=== PATIENT | female | born 1980 | race African-American/Black ===

== ENCOUNTER 2021-06-20 19:44 | Emergency (ER) | payer OTHER ==
[~2021-06-20] VITALS: Ht 170.2 cm; Wt 90.3 kg
[2021-06-20 20:06] VITALS: BP 137/85
[2021-06-20] MEDS ORDERED: LIDOCAINE-MPF 1%, 5ML ONE (21:30)
[2021-06-20] MEDS ORDERED: BACITRACIN ZINC OINT 500U/GM, 0.9 GM ONE ×2 (21:37→22:36)
[2021-06-20] MEDS ORDERED: SULFAMETH./TRIMETHOPRIM DS 800MG/160MG TABLET PO ONE (22:30)
[2021-06-20] MEDS ORDERED: IBUPROFEN 600 MG TABLET PO ONE (22:30)
[2021-06-20] MEDS ORDERED: IBUPROFEN 600 MG TABLET ONE (22:35)
[2021-06-20] MEDS ORDERED: SULFAMETH./TRIMETHOPRIM DS 800MG/160MG TABLET ONE (22:35)
== END 2021-06-20 23:05 | disposition home or self-care (01) ==
LOC: ED 20:54
DX: L03.012 Cellulitis of left finger (principal)
CPT/HCPCS: 10060; 99283